=== PATIENT | male | born 1990 | race Hispanic/Latino ===

== ENCOUNTER 2017-12-15 16:10 | Emergency (ER) | payer OTHER ==
[2017-12-15 16:31] VITALS: BP 128/70; PULSE 78; RESP 18; TEMP 97.8; O2SAT 99
[2017-12-15] MEDS ORDERED: Absorbable Gelatin Sponge Size 12-7 TP ONE (16:58)
[2017-12-15] MEDS ORDERED: Tdap Vaccine 0.5 ml Vial (10-64 yrs) IM ONE ×2 (16:58→17:10)
[2017-12-15] MEDS ORDERED: Absorbable Gelatin Sponge Size 12-7 ONE (17:09)
--- NOTE | 2017-12-15 17:28 | RAD ---
PROCEDURE: Left Hand Radiographs. Three views of the left hand performed. Note that the distal phalanx left 5th finger is partially obscured by overlying gauze/bandage. HISTORY: r/o bony injury secondary to skin avulsion COMPARISON: None. FINDINGS: BONES: No definitive radiographic evidence of acute displaced fracture nor dislocation so far as can be seen within the limitation of this exam. There appears to be a small avulsion injury involving the distal soft tissues at the tip of the 5th finger. If fracture is suspected, recommend repeat radiographs following removal of bandages JOINTS: Normal. No osteoarthritic changes however note made of what appears represent a small amount of vacuum phenomena within the DIP joint 5th finger. SOFT TISSUES: As above. No radiopaque foreign bodies OTHER FINDINGS: None. IMPRESSION: Note distal aspect 5th finger is partially obscured by overlying bandages/gauze. There appears to be an avulsion injury of the soft tissues distal tip of the 5th finger however no definitive radiographic evidence of acute displaced fracture. Repeat radiographs following removal of the bandages suggested if occult fracture suspected clinically..
--- NOTE | 2017-12-15 17:34 | ED PDOC ---
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 Patient states that prior to arrival, he was at home cutting vegetables when the knife slipped and he sustained skin avulsions to the stated digits. The persistent bleeding prompted his visit. Otherwise, (-) meds captain airline pilot, (-) other complaints. Right hand dominant Tetanus not up to date. PMD: none provided Past Medical History Reviewed: Historical Data, Nursing Documentation, Vital Signs Vital Signs: Last Vital Signs Temp 97.8 F 12/15/17 16:26 Pulse 78 12/15/17 16:26 Resp 18 12/15/17 16:26 BP 128/70 12/15/17 16:26 Pulse Ox 99 12/15/17 16:26 - Medical History PMH: No Chronic Diseases - Surgical History Surgical History: Tonsillectomy - Family History Family History: States: Unknown Family Hx - Social History Current smoker - smoking cessation education provided: No Alcohol: None Drugs: Denies - Home Medications Home Medications: Ambulatory Orders Medication Instructions Recorded RX: Bacitracin Ointment 1 applic TOP BID #1 tube 12/15/17 [Bacitracin] RX: Clindamycin [Cleocin] 300 mg PO TID #21 cap 12/15/17 RX: Ibuprofen [Motrin Tab] 800 mg PO Q8 PRN #21 tab 12/15/17 - Allergies Allergies/Adverse Reactions: Allergies Allergy/AdvReac Type Severity Reaction Status Date / Time Penicillins Allergy RASH Verified 12/15/17 16:30 Review of Systems ROS Statement: Except As Marked, All Systems Reviewed And Found Negative Skin: Positive for: Other (skin avulsions to tip of left 4th and 5th digits with positive active bleeding) Physical Exam - Reviewed Nursing Documentation Reviewed: Yes Vital Signs Reviewed: Yes - Physical Exam Comments: GENERAL APPEARANCE: Patient is awake, alert, oriented x 3, in no acute distress. Resting comfortably. SKIN: Warm, dry; (-) cyanosis. LEFT UPPER EXTREMITY: Tip of 4th digit just inferior to nail there is a superficial .5cm x .5cm skin avulsion with positive active bleeding, no nail involvement, no edema, no ecchymosis; Left 5th digit distal ulnar aspect 1cm x 1cm deep skin avulsion with active bleeding (?) bone involvement, no nail involvement, no edema, no ecchymosis. Full ROM all digits. Capillary refill intact. Remainder of LUE: non tender, full ROM. CARDIOVASCULAR: (+) distal pulse. PULMONARY: lungs cleared to auscultation bilaterally. NEUROLOGIC: (+) distal sensation. - ECG O2 Sat by Pulse Oximetry: 99 (RA) Pulse Ox Interpretation: Normal Medical Decision Making Medical Decision Making: Initial Impression: skin avulsions to left 4th and 5th digits Time: 1700 Initial Plan: --Tetanus booster --Gelfoam size 12-7 2spg TP --Ultram 50mg PO --Left hand XR 1725 XR FINDINGS: BONES: No definitive radiographic evidence of acute displaced fracture nor dislocation so far as can be seen within the limitation of this exam. There appears to be a small avulsion injury involving the distal soft tissues at the tip of the 5th finger. If fracture is suspected, recommend repeat radiographs following removal of bandages JOINTS: Normal. No osteoarthritic changes however note made of what appears represent a small amount of vacuum phenomena within the DIP joint 5th finger. SOFT TISSUES: As above. No radiopaque foreign bodies OTHER FINDINGS: None. IMPRESSION: Note distal aspect 5th finger is partially obscured by overlying bandages/gauze. There appears to be an avulsion injury of the soft tissues distal tip of the 5th finger however no definitive radiographic evidence of acute displaced fracture. Repeat radiographs following removal of the bandages suggested if occult fracture suspected clinically.. 1745 On reevaluation, gelfoam dressing intact, clean, and dry. Patient educated on wound care. Clindomycin PO ordered as prophylaxis incase of possible bone involvement or chip fracture not visualized on XR. 1800 Patient with bleeding through initial gelfoam dressing. 1820 Gelfoam dressing re-applied by Kenny FIELDS. 1 tab percocet ordered for additional pain control per request of patient s/p manipulation of finger injury prior to discharge. Patient is not driving home. On re-evaluation, patient reports improvement of symptoms. On exam, patient remains AAOx3, in no acute distress. Lungs clear to auscultation, cardiac RRR, repeat neuro exam shows no focal findings. Vitals stable. Lab/Diagnostic results d/w the patient in great detail. Diagnosis of skin avulsi on of left 4th and 5th digits of left hand d/w the patient. Based on history, exam and diagnostic results, plan will be for outpatient follow up. Patient instructed to follow-up with pmd / referral provided / the clinic in 1- 2 days without fail. Advised to take medication as prescribed. Return to the emergency room at any time for any new or worsening symptoms. Patient states he fully agrees with and understands discharge instructions. States that he agrees with the plan and disposition. Verbalized and repeated discharge instructions and plan. I have given the patient opportunity to ask any additional questions. Scribe Attestation: Documented by Neeru Ann, acting as a scribe for Greta Cox PA-C. Provider Scribe Attestation: All medical record entries made by the Scribe were at my direction and personally dictated by me. I have reviewed the chart and agree that the record accurately reflects my personal performance of the history, physical exam, medical decision making, and the department course for this patient. I have also personally directed, reviewed, and agree with the discharge instructions and disposition. Disposition - Clinical Impression Clinical Impression: Avulsion of skin of finger - Patient ED Disposition Is Patient to be Admitted: No Counseled Patient/Family Regarding: Studies Performed, Diagnosis, Need For Followup, Rx Given - Disposition Referrals: [facility] [Outside] Steven Owen MD [Staff Provider] - Disposition: Routine/Home Disposition Time: 18:00 Condition: STABLE Additional Instructions: The emergency medical care you received today was directed at your acute symptoms. If you were prescribed any medication, please fill it and take as directed. It may take several days for your symptoms to resolve. Return to the Emergency Department if your symptoms worsen, do not improve, or if you have any other problems. Please contact your doctor in 2 days for re-evaluation and follow up / or call one of the physicians/clinics you have been referred to that are listed on the Patient Visit Information form that is included in your discharge packet. Bring any paperwork you were given at discharge with you along with any medications you are taking to your follow up visit. Our treatment cannot replace ongoing medical care by a primary care provider (PCP) outside of the emergency department. Prescriptions: RX: Bacitracin Ointment [Bacitracin] 1 applic TOP BID #1 tube RX: Clindamycin [Cleocin] 300 mg PO TID #21 cap RX: Ibuprofen [Motrin Tab] 800 mg PO Q8 PRN #21 tab PRN Reason: Pain, Moderate (4-7) Instructions: Wound Care (DC), Common Finger Injuries (DC) Forms: [facility] (Swedish) Print Language: TAMAZIGHT - POA Present On Arrival: None
[2017-12-15] MEDS ORDERED: Oxycodone/Acetaminophen 5/325 mg Tab PO ONE (18:20)
[2017-12-15] MEDS ORDERED: Oxycodone/Acetaminophen 5/325 mg Tab ONE (18:35)
== END 2017-12-15 18:45 | disposition home or self-care (01) ==
LOC: H.ER 16:10
DX: S61.209A Unspecified open wound of unspecified finger without damage to nail, initial encounter (principal); Z88.0 Allergy status to penicillin; W26.0XXA Contact with knife, initial encounter; Y93.G1 Activity, food preparation and clean up; Z23 Encounter for immunization